=== PATIENT | male | born 1975 | race Caucasian/White ===

== ENCOUNTER 2018-11-11 20:55 | Observation (INO) ==
[2018-11-11] MEDS ORDERED: LR 1,000 ML ONE (22:34)
[2018-11-11] MEDS ORDERED: NAROPIN 0.2% ONE (22:47)
[2018-11-11] MEDS ORDERED: LR 1,000 ML IV ONE (22:51)
[2018-11-11] MEDS ORDERED: XYLOCAINE-MPF 2% ONE (23:04)
[2018-11-11] MEDS ORDERED: DIPRIVAN 1% ONE (23:04)
[2018-11-11] MEDS ORDERED: QUELICIN (DOSE) ONE (23:09)
[2018-11-11] MEDS ORDERED: PEPCID ONE (23:15)
[2018-11-11] MEDS ORDERED: REGLAN ONE (23:15)
[2018-11-11] MEDS ORDERED: PRECEDEX ONE (23:16)
[2018-11-11] MEDS ORDERED: DECADRON ONE (23:38)
[2018-11-11] MEDS ORDERED: ZOFRAN ONE ×2 (23:39)
[2018-11-11] MEDS ORDERED: EPHEDRINE ONE (23:43)
[2018-11-11] MEDS ORDERED: SODIUM CHLORIDE 0.9% 10 ML ONE (23:44)
[2018-11-11] MEDS ORDERED: NEO-SYNEPHRINE ONE (23:44)
[2018-11-11] MEDS ORDERED: ZEMURON ONE (23:47)
[2018-11-12] MEDS ORDERED: BRIDION ONE (00:01)
[2018-11-12] MEDS ORDERED: AFRIN NASAL SPRAY ONE (00:07)
[2018-11-12] MEDS ORDERED: LR 1,000 ML ONE (00:19)
[2018-11-12 00:32] LABS: HEMATOCRIT 37.7 % (42.0-52.0); HEMOGLOBIN 12.8 g/dL (14.0-18.0); MCH 29.8 PG (27-31); MCV 87.9 FL (81-99); MPV 9.8 FL (7.4-10.4); RBC 4.29 XMIL (4.7-6.1); RDW 12.3 % (11.5-14.5); WBC 16.45 X1000 (4.8-10.8)
[2018-11-12] MEDS: HYDROCODONE/APAP 7.5-325/15 ML ONE ×4 (00:49→02:37)
[2018-11-12] MEDS ORDERED: LR 1,000 ML IV SCH (01:00)
[2018-11-12] MEDS: DECADRON IV SCH ×3 (02:36→17:08)
--- NOTE | 2018-11-12 03:24 | OPERATIVE NOTE ---
PROCEDURE DATE: 11/11/2018 PREOPERATIVE DIAGNOSIS: Tonsil bleed. POSTOPERATIVE DIAGNOSIS: Tonsil bleed. PROCEDURE PERFORMED: Control of tonsil bleed under anesthesia. COMPLICATIONS: No complications. ANESTHESIA: General with endotracheal intubation. FINDINGS: Multiple very small sources of bleeding left and right inferior tonsil fossa easily controlled with suction Bovie cautery. DESCRIPTION OF PROCEDURE: The patient was identified and consented, options were reviewed. He was brought to the operating room, placed in supine position where general anesthesia was induced with endotracheal intubation. McIvor mouth gag was placed and suspended for oropharyngeal visualization. A large blood clot was removed from the left tonsil fossa where the patient described he felt something pop earlier after several episodes of coughing fits in the last 24 hours. After this clot was removed, suction Bovie cautery was used to cauterize multiple small friable spots of gentle oozing on the left inferior and the right mid tonsil fossa. He tolerated the procedure well. An orogastric tube was placed and some blood was suctioned out. Ropivacaine 0.2% was injected into the tonsil fossa bilaterally. He tolerated the procedure well, was allowed to recover from anesthesia, extubated and transferred to the recovery room in stable condition where he will be monitored in some sort of intensive setting for blood pressure and further bleeding and oxygen. Hospitalist will be consulted for medical issues including blood pressure control. cc: Osmany Pearson MD
[2018-11-12] MEDS ORDERED: ZOFRAN IV PRN (04:15)
[2018-11-12] MEDS: SYNTHROID PO SCH (06:07)
[2018-11-12 06:22] LABS: HEMATOCRIT 40.1 % (42.0-52.0); HEMOGLOBIN 13.4 g/dL (14.0-18.0); MCH 29.6 PG (27-31); MCHC 33.4 g/dL (33-37); MCV 88.5 FL (81-99); RBC 4.53 XMIL (4.7-6.1); RDW 12.7 % (11.5-14.5); WBC 14.07 X1000 (4.8-10.8)
[2018-11-12 06:23] LABS: BASO# 0.01 X1000 (0.0-0.2); BASO% 0.1 % (0.0-0.8); IMM GRAN# 0.06 X1000 (0.0-0.04); IMM GRAN% 0.4 % (0.0-0.5); LYMPH# 1.38 X1000 (1.2-3.4); LYMPH% 9.8 % (20.5-51.1); MONO# 0.48 X1000 (0.11-0.59); MONO% 3.4 % (1.7-9.3); MPV 9.8 FL (7.4-10.4); NEUT# 12.14 X1000 (1.4-6.5); NEUT% 86.3 % (42.2-75.2); PLT 265 X1000 (130-400)
[2018-11-12 06:33] LABS: AGAP 11; ALB/GLOB RATIO 1.4; ALBUMIN 3.9 g/dL (3.5-5.0); ALKALINE PHOSPHATASE 75 U/L (32-122); BUN 24 mg/dL (8-22); CALCIUM 8.7 mg/dL (8.8-10.2); CHLORIDE 104 mmol/L (98-107); COSMO 284; CREATININE 0.8 mg/dL (0.7-1.2); ESTIMATED GFR > 60; GLUCOSE 167 mg/dL (70-104); GOT 23 U/L (10-34); GPT 47 U/L (10-44); POTASSIUM 5.2 mmol/L (3.5-5.1); SODIUM 138 mmol/L (136-145); TCO2 23 mmol/L (25-35); TOTAL BILIRUBIN 0.33 mg/dL (0.20-1.00); TOTAL PROTEIN 6.6 g/dL (6.3-8.3)
--- NOTE | 2018-11-12 07:11 | CONSULTATION ---
DATE OF CONSULTATION: 11/12/2018 REQUESTING PHYSICIAN: Dr. Osmany Pearson. CHIEF COMPLAINT: Postoperative complaints/bleeding. HISTORY OF PRESENT ILLNESS: Mr. Curiel is a 43-year-old male who reports that on Tuesday morning, which would be 11/10/2018, he did undergo a tonsillectomy with Dr. Osmany Pearson at the [facility]. He states that things had been going well until last night, 11/11/2018 at approximately 7 p.m. when he was eating some potatoes, and said that he felt a gush, and then began feeling trickling and was spitting up blood. The patient states that during this time, he did have some nausea and states that he was very nervous feeling due to the fact that he was spitting up blood. Other than feeling nervous, nauseous, and spitting up blood, he had no other complaints. He denied any dizziness, headache, shortness of breath, chest pain, abdominal pain. He did report, as previously mentioned, a little nausea, though had not had any vomiting or diarrhea. He denies any abdominal pain, dysuria, or urinary frequency. He denies any pain, numbness, tingling, or swelling in extremities. He also denies any fever, body aches, or chills. Upon evaluation in the ER, the patient was initially noted to be tachycardic. He did have a temperature of 98.2 degrees, heart rate 134, respirations 20, blood pressure was 164/106, with oxygen saturation of 96% on room air. The patient, from what I understand, did become mildly hypotensive in the ER with systolics that were reportedly in the 80s, though after being placed in trendelenburg position and receiving fluid boluses, his blood pressures did improve. Dr. Pearson, ENT, did take the patient to surgery for control of tonsil bleed under anesthesia. Since coming from surgery and recovery, the patient has been placed in the PVC unit for close monitoring. According to Dr. Pearson's note, the procedure did not have any complications. Since being placed on the PVC unit after surgery, the patient's heart rate was 104, respirations 21, blood pressure 144/87, oxygen saturation is 95% on room air. REVIEW OF SYSTEMS: A 14-point review of systems was conducted with the patient, and all were negative, except for pertinent positives mentioned in the above HPI. PAST MEDICAL HISTORY: 1. Hypothyroidism. 2. The patient reports that his physician has been monitoring his blood pressure, and has been considering placing him on blood pressure medicine, though has not done so at this time. PAST SURGICAL HISTORY: 1. Cholecystectomy. 2. Two days postoperative tonsillectomy with Dr. Osmany Pearson as mentioned above in the HPI. SOCIAL HISTORY: The patient is a former smoker. He states that he did not regularly smoke, though socially smoked on occasion, though he states he quit smoking 3 years ago. He only reports very rare occasional alcohol use. He denies any illicit drug use. FAMILY HISTORY: Positive for his mother having heart disease, diabetes mellitus, and hypertension. He denies his father having any known medical problems. ALLERGIES: The patient only reports allergy to adhesive tape. HOME MEDICATIONS: Levothyroxine sodium 175 mcg p.o. daily. DIAGNOSTIC DATA: White blood cell count is 16,450, hemoglobin 12.8, hematocrit 37.7, platelet count is 262,000. Point of care glucose is 155. PHYSICAL EXAMINATION: Vital Signs: Heart rate 104, respirations 20, blood pressure 144/87, oxygen saturation is 95% on room air. General: Mr. Curiel is a pleasant, 43-year-old, obese, male. He was resting in the inpatient bed. He was in no acute distress. He was awake, alert, and able to answer all questions appropriately. HEENT: Head is atraumatic, normocephalic. Pupils are equal, round, reactive to light and were 3 mm bilaterally and brisk. Sub-conjunctivae were pink. Oral mucosa was moist. The patient's posterior pharynx does have postsurgical changes. You can see where he has change to the tissues, likely from cauterization from his tonsillectomy, though there is no blood noted to the posterior pharynx, and the patient is not complaining of any feeling of trickling in the back of his throat and is not spitting up any blood at this time. Neck: Supple. Trachea midline. Cardiovascular: The patient has S1, S2 present. No murmurs, gallops, rubs appreciated, though does have a slightly tachycardic rate that is regular. Pulmonary: The patient has symmetrical chest expansion bilaterally. Lung sounds are clear to auscultation in bilateral full schultz. Abdomen: Soft, nondistended. The patient does have a protuberant abdomen noted. He was nontender upon palpation. Bowel sounds are present in all 4 quadrants. Extremities: No cyanosis or edema noted. Pulse, motor, and sensory were intact in all extremities. Radial and pedal pulses were 3+ bilaterally. Integumentary: The patient's skin is pink, warm, and dry. Neurological: The patient is alert and oriented to person, place, time, and situation. He is able to move all extremities. There were no focal neurological deficits noted. ASSESSMENT AND PLAN: 1. Postoperative tonsillectomy bleed. At this time, the patient has been taken to the operating room by Dr. Osmany Pearson for control of his tonsil bleed under anesthesia. This was performed successfully without any complications. We will refer to Dr. Osmany Pearson for further management of this, and we will follow along. 2. Some mild hypotension. The patient reports that he has borderline hypertension and that his physician has been considering placing him on blood pressure medicine. The patient did have a brief period of mild hypotension in the emergency room prior to surgery. Since that time he did receive normal saline boluses, and his blood pressure has improved and is maintaining within normal limits at this time, with the last blood pressure of 118/78. We will continue to monitor this closely. 3. Hypothyroidism. We will continue the patient's levothyroxine sodium. We have ordered for a TSH to be performed in the morning. 4. Deep vein thrombosis prophylaxis will be provided with sequential compression devices. The patient has been placed on PVC with telemetry for close monitoring. We will do every 4 hour vital signs, incentive spirometry, strict intake and output, and continuous pulse oximetry. He will be on a mechanical soft diet per Dr. Osmnay Pearson. We will repeat his CBC, CMP, TSH, and A1c in the morning. Further orders and recommendations pending hospital course, diagnostic studies, and physician evaluation. Dictated by CELIA Castellon for Hasmukh Lynn MD cc: Osmany Pearson MD agree with the above. the following is my own face to face assessment. patient with post-op bleeding s/p tonsillectomy. no further bleeding since intervention by surgery earlier tonight. heart: RRR. lungs: CTAB. some slight hypotension after procedure but blood pressure looks good now will monitor. MTDD
[2018-11-12 07:24] LABS: HEMOGLOBIN A1C 5.3 % (4.8-6.0)
[2018-11-12 07:30] LABS: LYMPHS 14 % (21-51); SEGS 86 % (42-75)
[2018-11-12] MEDS: HYDROCODONE/APAP 7.5-325/15 ML PO PRN ×4 (07:46→21:29)
--- NOTE | 2018-11-12 09:29 | PROGRESS NOTE ---
DATE: 11/12/2018 SUBJECTIVE: This patient is complaining of pain at the level of the surgical wound, but he is feeling better. He has a postoperative tonsillectomy bleed, and he was taken to the operating room by Dr. Pearson, and it looks like it was performed a successful treatment. I will continue to monitor. I will change the diet from mechanical soft diet to full liquid diet since this patient is having pain swallowing. I discussed this with him, and he agreed with that. If he tolerates this and the pain is better, we can advance it. OBJECTIVE: Vital Signs: Temperature 98.3 degrees, pulse 116, respiratory rate 17, blood pressure 127/82, oxygen saturation 96 on room air. HEENT: Head normocephalic. No trauma. PERRLA. Neck: Supple. No JVD. No masses. Central trachea. Chest: Clear to auscultation. No wheezing. No rales. Abdomen: Soft, nontender, nondistended. No hepatosplenomegaly. Obese. Extremities: No edema, no clubbing, no cyanosis. Neurological: Alert and oriented x3. No focal deficits. LABORATORY DATA: WBC 14, hemoglobin 13.4, hematocrit 40.1, platelets 265,000. Sodium 138, potassium 5.2, chloride 104, bicarbonate 23, BUN 24, creatinine 0.8, glucose 167, calcium 8.7. AST 23, ALT 47, alkaline phosphatase 75. TSH 3.1. ASSESSMENT AND PLAN: 1. Postoperative tonsillectomy bleed. This patient went to the operating room with Dr. Pearson, and the bleeding has been controlled. He has been placed on a diet. Will continue to monitor. Pain medication and steroids. 2. Likely hypertension. At this moment, I will not add any medication because his blood pressure has been stable, but I will monitor this closely. 3. Hypothyroidism, controlled. TSH within normal limits. 4. Deep venous thrombosis prophylaxis with sequential compression devices. 5. Obesity. Diet and exercise has been discussed. cc: MD Osmany Mi MD
[2018-11-13] MEDS: DECADRON IV SCH ×2 (00:56→08:18)
[2018-11-13] MEDS: HYDROCODONE/APAP 7.5-325/15 ML PO PRN ×2 (04:12→08:17)
[2018-11-13 05:46] LABS: BASO# 0.02 X1000 (0.0-0.2); BASO% 0.2 % (0.0-0.8); HEMATOCRIT 36.8 % (42.0-52.0); HEMOGLOBIN 12.3 g/dL (14.0-18.0); IMM GRAN# 0.05 X1000 (0.0-0.04); IMM GRAN% 0.4 % (0.0-0.5); LYMPH# 1.98 X1000 (1.2-3.4); LYMPH% 16.6 % (20.5-51.1); MCH 29.5 PG (27-31); MCHC 33.4 g/dL (33-37); MCV 88.2 FL (81-99); MONO# 0.56 X1000 (0.11-0.59); MONO% 4.7 % (1.7-9.3); NEUT# 9.34 X1000 (1.4-6.5); NEUT% 78.1 % (42.2-75.2); PLT 287 X1000 (130-400); RBC 4.17 XMIL (4.7-6.1); RDW 12.6 % (11.5-14.5); WBC 11.95 X1000 (4.8-10.8)
[2018-11-13] MEDS: SYNTHROID PO SCH (06:14)
[2018-11-13 06:15] LABS: AGAP 12; BUN 18 mg/dL (8-22); CALCIUM 8.7 mg/dL (8.8-10.2); CHLORIDE 103 mmol/L (98-107); COSMO 284; CREATININE 0.8 mg/dL (0.7-1.2); ESTIMATED GFR > 60; GLUCOSE 172 mg/dL (70-104); POTASSIUM 3.7 mmol/L (3.5-5.1); SODIUM 139 mmol/L (136-145); TCO2 24 mmol/L (25-35)
[2018-11-13 08:00] VITALS: BP 128/87
--- NOTE | 2018-11-14 09:22 | DISCHARGE SUMMARY ---
ADMISSION DATE: 11/12/2018 DISCHARGE DATE: 11/13/2018 DISCHARGE DIAGNOSES: 1. Status post peritonsillar abscess. 2. Postoperative tonsillectomy bleed. 3. Hypertension. 4. Hypothyroidism. HISTORY: Briefly, this is a 43-year-old gentleman who came in per Dr. Pearson with postoperative bleed. He was admitted for monitoring. Dr. Pearson evaluated the patient, and they were cauterized with Bovie cautery. He actually had some ropivacaine also injected, but without epinephrine. The patient had been intubated for the procedure. In any case, he was monitored. Vital signs were stable. He was not hypoxic. He was a little bit anemic 13 and 40 and 12 and 36 postop, but he was tolerating p.o. with some difficulty, but he was able to swallow. He was felt stable for discharge. DISCHARGE MEDICATIONS: 1. Synthroid 175 daily. 2. He was also given [place] elixir for pain control. DISCHARGE CONDITION: Stable. cc: MD Osmany Hebert MD
== END 2018-11-13 11:30 | disposition home or self-care (01) ==
LOC: ED 20:55 → SUATTDRO 11-12 01:55 → INTOOBSV 11-12 01:55 → 2N 11-12 01:55
PROVIDERS: ADMIT Otolaryngology Otolaryngology/Facial Plastic Surgery; ATTEND Internal Medicine